=== PATIENT | male | born 1975 | race African-American/Black ===

== ENCOUNTER 2017-04-22 11:41 | Emergency (ER) | payer MEDICAID ==
[~2017-04-22] VITALS: Ht 180.3 cm; Wt 100.0 kg
[2017-04-22 14:26] VITALS: BP 140/92
[2017-04-22] MEDS ORDERED: IBUPROFEN 600MG TABLET PO ONE (14:30)
== END 2017-04-22 14:26 | disposition home or self-care (01) ==
LOC: ER 12:53
DX: S40.012A Contusion of left shoulder, initial encounter (principal); M54.5 Low back pain; W50.2XXA Accidental twist by another person, initial encounter; Y93.89 Activity, other specified; Y92.89 Other specified places as the place of occurrence of the external cause; Y99.8 Other external cause status
CPT/HCPCS: 99283

== ENCOUNTER 2020-11-27 01:01 | Emergency (ER) | payer MEDICAID ==
[~2020-11-27] VITALS: Ht 185.4 cm; Wt 100.0 kg
[2020-11-27 01:03] VITALS: BP 146/89
== END 2020-11-27 01:44 | disposition home or self-care (01) ==
LOC: ER 01:14
DX: U07.1 COVID-19 (principal); I10 Essential (primary) hypertension
CPT/HCPCS: 87426; 99283

== ENCOUNTER 2021-01-07 17:49 | Emergency (ER) | payer MEDICAID ==
[~2021-01-07] VITALS: Ht 185.4 cm; Wt 100.0 kg
[2021-01-07] MEDS ORDERED: CEPH500C2 MT (20:36)
[2021-01-07] MEDS ORDERED: CEPHALEXIN 250MG CAPSULE PO ONE (20:45)
[2021-01-07 21:11] VITALS: BP 126/54
== END 2021-01-07 21:12 | disposition home or self-care (01) ==
LOC: ER 17:49
DX: S80.862A Insect bite (nonvenomous), left lower leg, initial encounter (principal); W57.XXXA Bitten or stung by nonvenomous insect and other nonvenomous arthropods, initial encounter; Y93.89 Activity, other specified; Y92.89 Other specified places as the place of occurrence of the external cause; Y99.8 Other external cause status
CPT/HCPCS: 99283

== ENCOUNTER 2021-02-07 21:29 | Emergency (ER) | payer MEDICAID ==
[~2021-02-07] VITALS: Ht 188 cm; Wt 106.0 kg
[~2021-02-07 21:29] MED LIST: CEPH500C2 MT
[2021-02-07 22:02] VITALS: BP 157/102
== END 2021-02-08 02:12 | disposition home or self-care (01) ==
LOC: ER 21:29
DX: S60.221A Contusion of right hand, initial encounter (principal); I10 Essential (primary) hypertension; Y04.0XXA Assault by unarmed brawl or fight, initial encounter; Y93.89 Activity, other specified; Y92.89 Other specified places as the place of occurrence of the external cause; Y99.8 Other external cause status
CPT/HCPCS: 73130; 99283

== ENCOUNTER 2021-05-20 00:38 | Emergency (ER) | payer MEDICAID ==
[~2021-05-20] VITALS: Ht 185.4 cm; Wt 104.0 kg
[2021-05-20 01:05] VITALS: BP 146/90
[2021-05-20 01:35] LABS: BASOPHILS % 1.1 % (0.0-2.0); EOSINOPHILS % 1.7 % (0.0-5.0); HEMATOCRIT. 27.8 % (42.0-52.0); HEMOGLOBIN. 8.9 g/dL (14.0-18.0); LYMPHOCYTES % 35.1 % (20.0-50.0); MEAN CORPUSCULAR VOLUME 84.3 fL (80.0-94.0); MEAN PLATELET VOLUME 8.4 fl (7.4-10.4); MONOCYTES % 10.8 % (2.0-8.0); NEUTROPHILS % 51.3 % (40.0-76.0); PLATELET 256 x1000/uL (130-400); RED CELL DISTRIBUTION WIDTH 16.4 % (11.6-14.6)
[2021-05-20 01:45] LABS: CHLORIDE 112 mEq/L (98-107)
[2021-05-20 01:51] LABS: ETHANOL BLOOD < 10 mg/dL
[2021-05-20] MEDS ORDERED: SODIUM CHLORIDE 0.9% 1,000 ML IV ONE (02:30)
[2021-05-20] MEDS ORDERED: PANTOPRAZOLE SODIUM 40 MG/VIAL IV STA (02:30)
[2021-05-20 03:33] LABS: *BARBITURATES SCREEN URINE NEGATIVE (NEGATIVE); *BENZODIAZEPINES SCREEN URINE NEGATIVE (NEGATIVE); *COCAINE SCREEN URINE NEGATIVE (NEGATIVE); METHADONE URINE SCREEN NEGATIVE (NEGATIVE)
[2021-05-20 03:35] LABS: *AMPHETAMINES SCREEN URINE PRESUMTIVE POSITIVE (NEGATIVE); CANNABINOID URINE SCREEN PRESUMTIVE POSITIVE (NEGATIVE); OPIATES URINE SCREEN NEGATIVE (NEGATIVE); PHENCYCLIDINE URINE SCREEN PRESUMTIVE POSITIVE (NEGATIVE)
== END 2021-05-20 03:44 | disposition left against medical advice (07) ==
LOC: ER 00:38
DX: K92.2 Gastrointestinal hemorrhage, unspecified (principal); R55 Syncope and collapse; F12.10 Cannabis abuse, uncomplicated; D64.9 Anemia, unspecified; I10 Essential (primary) hypertension; Z53.29 Procedure and treatment not carried out because of patient's decision for other reasons
CPT/HCPCS: 36415; 80053; 80305; 80320; 82270; 83880; 84484; 85025; 86850; 86900; 86901; 93005; 99284; J7030; G0480